=== PATIENT | male | born 1960 | race African-American/Black ===

== ENCOUNTER 2021-09-24 10:40 | Emergency (ER) | payer MEDICAID ==
[~2021-09-24] VITALS: Ht 170.2 cm; Wt 75.0 kg
[2021-09-24 10:44] VITALS: BP 168/99
== END 2021-09-24 14:38 | disposition left against medical advice (07) ==
LOC: ER 10:40
DX: Z53.21 Procedure and treatment not carried out due to patient leaving prior to being seen by health care provider (principal)

== ENCOUNTER 2021-10-27 05:30 | Emergency (ER) | payer MEDICAID ==
[~2021-10-27] VITALS: Ht 170.2 cm; Wt 78.0 kg
[2021-10-27] MEDS ORDERED: ACETAMINOPHEN 325MG TABLET PO ONE ×2 (06:15→07:15)
[2021-10-27 06:17] VITALS: BP 133/84
[2021-10-27] MEDS ORDERED: TOPUD PO (06:47)
== END 2021-10-27 07:16 | disposition home or self-care (01) ==
LOC: ER 05:30
DX: H92.01 Otalgia, right ear (principal)
CPT/HCPCS: 99281